=== PATIENT | female | born 1955 | race Two or more races ===

== ENCOUNTER 2020-06-16 19:40 | Emergency (ER) | payer MEDICARE, OTHER ==
[2020-06-16 19:51] VITALS: BMI 20.5
[2020-06-16] MEDS ORDERED: ACETAMINOPHEN 1000 MG/100 ML VIAL (NON FORMULARY) IVPB ONE (20:11)
[2020-06-16] MEDS ORDERED: ACETAMINOPHEN INJECTION 100 ML IVPB ONE (20:20)
[2020-06-16 20:27] LABS: BASO % 0.5 % (0-2.0); EOS % 0.5 % (0-4.5); HEMATOCRIT 42.2 % (32.4-45.2); HEMOGLOBIN 14.3 GM/dL (10.7-15.3); LYMPH % 25.2 % (8-40); MCH 30.1 pg (25.7-33.7); MCHC 33.8 g/dl (32.0-36.0); MEAN CELL VOLUME 89.1 fl (80-96); MEAN PLT VOLUME 9.1 fl (7.5-11.1); MONO % 8.7 % (3.8-10.2); NEUT % 65.1 % (42.8-82.8); PLATELET COUNT 171 K/MM3 (134-434); RBC 4.74 M/mm3 (3.60-5.2); WHITE BLOOD COUNT 4.1 K/mm3 (4.0-10.0)
[2020-06-16 20:47] LABS: CHLORIDE 105 mmol/L (98-107); POTASSIUM 3.5 mmol/L (3.5-5.1); SODIUM 139 mmol/L (136-145)
[2020-06-16 20:50] LABS: CALCIUM 8.5 mg/dL (8.5-10.1)
[2020-06-16 20:51] LABS: ALBUMIN 3.7 g/dl (3.4-5.0); ANION GAP 7 MMOL/L (8-16); CO2 28 mmol/L (21-32); GLUCOSE,RANDOM 107 mg/dL (74-106); LIPASE 224 U/L (73-393)
[2020-06-16 20:53] LABS: SGPT/ALT 17 U/L (13-61)
[2020-06-16 20:54] LABS: CREATININE 0.7 mg/dL (0.55-1.3); SGOT/AST 12 U/L (15-37)
[2020-06-16 20:55] LABS: TOT PROT 6.7 g/dl (6.4-8.2)
[2020-06-16 20:56] LABS: ALK PHOS 118 U/L (45-117)
[2020-06-16] MEDS ORDERED: MAG HYDROX/AL HYDROX/SIMETH 30 ML UNIT-DOSE CUP PO ONE (21:01)
[2020-06-16] MEDS ORDERED: FAMOTIDINE 20 MG/50 ML IVPB 20 MG/50 ML MG IVPB ONE ×2 (21:01→21:32)
[2020-06-16] MEDS ORDERED: HYDROmorphone HCL CARPU-JECT 2 MG/1 ML DISP.SYRIN IVPUSH ONE ×2 (21:01→21:05)
[2020-06-16] MEDS ORDERED: MAG HYDROX/AL HYDROX/SIMETH 30 ML UNIT-DOSE CUP ONE (21:32)
[2020-06-16] MEDS ORDERED: HYDROmorphone HCl 2 MG/ML VIAL ONE (21:32)
[2020-06-16] MEDS ORDERED: BAMLANIVIMAB 700 MG in SODIUM CHLORIDE 250 ML IVPB ONE (22:51)
[2020-06-17 00:41] VITALS: TEMP 98.2
[2020-06-17] MEDS ORDERED: METOCLOPRAMIDE HCL 10 MG TABLET (FP) PO ONE ×2 (00:58)
[2020-06-17 02:51] VITALS: BP 158/84; PULSE 78
[2020-06-17] MEDS ORDERED: ACETAMINOPHEN 325 MG TABLET (FP) ONE (03:02)
[2020-06-17] MEDS ORDERED: ACETAMINOPHEN 325 MG TABLET (FP) PO ONE (03:06)
== END 2020-06-17 03:13 | disposition home or self-care (01) ==
LOC: JER 19:40
PROC: 3E0333Z Introduction of Anti-inflammatory into Peripheral Vein, Percutaneous Approach (ICD-10-PCS; principal; 2020-06-16)
PROC: 3E03329 Introduction of Other Anti-infective into Peripheral Vein, Percutaneous Approach (ICD-10-PCS; 2020-06-16)
PROC: 3E033GC Introduction of Other Therapeutic Substance into Peripheral Vein, Percutaneous Approach (ICD-10-PCS; 2020-06-16)
PROC: 3E033GC Introduction of Other Therapeutic Substance into Peripheral Vein, Percutaneous Approach (ICD-10-PCS; 2020-06-16)
DX: U07.1 COVID-19 (principal)
CPT/HCPCS: 36415; 71045-TC-FY; 80053; 83690; 84484; 85025; 93005; 93010; 99285-25; C9803; J0131; M0239; Q0239; U0003

== ENCOUNTER 2020-09-12 12:25 | Day surgery (SDC) | payer MEDICARE, OTHER ==
[2020-09-12] MEDS ORDERED: ACETAMINOPHEN 325 MG TABLET (FP) PO ONE (13:00)
[2020-09-12] MEDS ORDERED: ZOLEDRONIC ACID/MAN/WATER 5 MG/100 ML INFUS..BTL IVPB ONE (13:00)
[2020-09-12 13:24] VITALS: TEMP 99
[2020-09-12 15:42] VITALS: BP 150/64; PULSE 87
== END 2020-09-12 15:15 | disposition home or self-care (01) ==
LOC: FINFUSION 12:25 → FM/S 12:30 → FINFUSION 15:15
PROVIDERS: ATTEND Internal Medicine Endocrinology, Diabetes & Metabolism
PROC: 3E033GC Introduction of Other Therapeutic Substance into Peripheral Vein, Percutaneous Approach (ICD-10-PCS; principal; 2020-09-12)
DX: M81.0 Age-related osteoporosis without current pathological fracture (principal)
CPT/HCPCS: 96365; J3489

== ENCOUNTER 2021-11-26 14:02 | Observation (INO) | payer MEDICARE, OTHER ==
[2021-11-26] MEDS ORDERED: ACETAMINOPHEN 325 MG TABLET (FP) PO ONE (15:48)
[2021-11-26] MEDS ORDERED: ACETAMINOPHEN 325 MG TABLET (FP) ONE (15:58)
[2021-11-26 18:48] LABS: BASO % 0.7 % (0-2.0); HEMATOCRIT 43.2 % (32.4-45.2); HEMOGLOBIN 14.4 GM/dL (10.7-15.3); LYMPH % 21.1 % (8-40); MCH 29.9 pg (25.7-33.7); MCHC 33.4 g/dl (32.0-36.0); MEAN CELL VOLUME 89.6 fl (80-96); MEAN PLT VOLUME 9.5 fl (7.5-11.1); MONO % 6.8 % (3.8-10.2); NEUT % 68.4 % (42.8-82.8); PLATELET COUNT 269 10^3/uL (134-434); RBC 4.82 M/mm3 (3.60-5.2); RDW 13.8 % (11.6-15.6); WHITE BLOOD COUNT 6.6 K/mm3 (4.0-10.0)
[2021-11-26 19:17] LABS: CALCIUM 8.9 mg/dL (8.5-10.1)
[2021-11-26 19:18] LABS: ALBUMIN 3.7 g/dl (3.4-5.0); BLOOD UREA NITROGEN 11.2 mg/dL (7-18)
[2021-11-26 19:20] LABS: CREATININE 0.7 mg/dL (0.55-1.3)
[2021-11-26 19:22] LABS: TOT PROT 6.8 g/dl (6.4-8.2)
[2021-11-26 19:27] LABS: BILIRUBIN,TOTAL 0.6 mg/dL (0.2-1)
[2021-11-26 21:06] LABS: ERYTHROCYTE SEDIMENTATION RATE 11 mm/hr (0-30)
[2021-11-26] MEDS ORDERED: ONDANSETRON 4 MG/2 ML VIAL IVPUSH PRN (23:19)
[2021-11-26] MEDS ORDERED: ACETAMINOPHEN 1000 MG/100 ML BAG IVPB PRN (23:20)
[2021-11-27] MEDS ORDERED: ATORVASTATIN CA 80 MG TABLET (FP) ONE (00:24)
[2021-11-27] MEDS: ATORVASTATIN CA 80 MG TABLET (FP) PO SCH ×2 (00:27→21:41)
[2021-11-27 01:12] LABS: INR 1.03 (0.83-1.09); PROTHROMBIN TIME (PATIENT) 11.9 SEC (9.7-13.0)
[2021-11-27 01:15] LABS: ACTIVATED PTT 25.2 SECONDS (25.2-36.5)
[2021-11-27 01:23] LABS: BLOOD UREA NITROGEN 11.7 mg/dL (7-18); CALCIUM 8.5 mg/dL (8.5-10.1)
[2021-11-27 01:27] LABS: CREATININE 0.7 mg/dL (0.55-1.3)
[2021-11-27] MEDS ORDERED: PATIENT'S OWN MEDICATION (NON-FORMULARY) (Lipase/Protease/Amylase [Zenpep Dr 40,000 Unit C PO SCH (06:00)
[2021-11-27] MEDS: GABAPENTIN 300 MG CAPSULE PO SCH ×3 (06:25→21:41)
[2021-11-27] MEDS: FAMOTIDINE 40 MG TABLET PO SCH ×2 (10:17→21:41)
[2021-11-27] MEDS: ENOXAPARIN NA (PORCINE) 40 MG/0.4 ML DISP.SYRIN SQ SCH (10:17)
[2021-11-27] MEDS: LORATADINE 10 MG TABLET PO SCH (10:17)
[2021-11-27] MEDS: PANTOPRAZOLE 40 MG TABLET PO SCH (10:17)
[2021-11-27 13:27] LABS: BASO % 0.9 % (0-2.0); EOS % 2.3 % (0-4.5); HEMATOCRIT 43.6 % (32.4-45.2); HEMOGLOBIN 14.6 GM/dL (10.7-15.3); LYMPH % 20.6 % (8-40); MCH 30.2 pg (25.7-33.7); MCHC 33.5 g/dl (32.0-36.0); MONO % 6.2 % (3.8-10.2); PLATELET COUNT 251 10^3/uL (134-434); RBC 4.84 M/mm3 (3.60-5.2); RDW 13.5 % (11.6-15.6); WHITE BLOOD COUNT 5.7 K/mm3 (4.0-10.0)
[2021-11-27 13:46] LABS: ALBUMIN 3.4 g/dl (3.4-5.0); CALCIUM 8.5 mg/dL (8.5-10.1)
[2021-11-27 13:47] LABS: BLOOD UREA NITROGEN 11.5 mg/dL (7-18)
[2021-11-27 13:49] LABS: CREATININE 0.6 mg/dL (0.55-1.3); PHOSPHOROUS 2.6 mg/dL (2.5-4.9)
[2021-11-27 13:51] LABS: BILIRUBIN,TOTAL 0.8 mg/dL (0.2-1); TOT PROT 6.3 g/dl (6.4-8.2)
[2021-11-27] MEDS: LIPASE/PROTEASE/AMYLASE 36,000 UNIT CAPSULE PO SCH (16:32)
[2021-11-28] MEDS: GABAPENTIN 300 MG CAPSULE PO SCH ×2 (06:27→14:27)
[2021-11-28] MEDS ORDERED: LOSARTAN POTASSIUM 25 MG TABLET PO SCH (10:00)
[2021-11-28] MEDS ORDERED: FUROSEMIDE 20 MG TABLET (FP) PO SCH (10:00)
[2021-11-28] MEDS ORDERED: metoPROLOL SUCCINATE 25 MG TAB.SR.24H (FP) PO SCH (10:00)
[2021-11-28] MEDS: PANTOPRAZOLE 40 MG TABLET PO SCH (10:12)
[2021-11-28] MEDS: ENOXAPARIN NA (PORCINE) 40 MG/0.4 ML DISP.SYRIN SQ SCH (10:12)
[2021-11-28] MEDS: LORATADINE 10 MG TABLET PO SCH (10:12)
[2021-11-28] MEDS: FAMOTIDINE 40 MG TABLET PO SCH (10:12)
[2021-11-28] MEDS: LIPASE/PROTEASE/AMYLASE 36,000 UNIT CAPSULE PO SCH ×3 (11:37→17:37)
[2021-11-28 13:56] LABS: BASO % 0.7 % (0-2.0); EOS % 2.1 % (0-4.5); HEMATOCRIT 41.8 % (32.4-45.2); HEMOGLOBIN 13.8 GM/dL (10.7-15.3); LYMPH % 22.3 % (8-40); MCH 30.1 pg (25.7-33.7); MCHC 33.1 g/dl (32.0-36.0); MEAN PLT VOLUME 9.6 fl (7.5-11.1); MONO % 6.6 % (3.8-10.2); NEUT % 68.3 % (42.8-82.8); PLATELET COUNT 251 10^3/uL (134-434); RDW 13.6 % (11.6-15.6); WHITE BLOOD COUNT 6.1 K/mm3 (4.0-10.0)
[2021-11-28 14:32] LABS: CALCIUM 8.2 mg/dL (8.5-10.1)
[2021-11-28 14:33] LABS: ALBUMIN 3.4 g/dl (3.4-5.0); MAGNESIUM 2.1 mg/dL (1.8-2.4)
[2021-11-28 14:34] LABS: BLOOD UREA NITROGEN 14.5 mg/dL (7-18)
[2021-11-28 14:36] LABS: CREATININE 0.9 mg/dL (0.55-1.3); PHOSPHOROUS 3.1 mg/dL (2.5-4.9)
[2021-11-28 14:37] LABS: BILIRUBIN,TOTAL 0.8 mg/dL (0.2-1)
[2021-11-28 14:38] LABS: TOT PROT 6.2 g/dl (6.4-8.2)
[2021-11-28 14:48] VITALS: BP 118/77; PULSE 83; TEMP 98.7
[2021-11-28] MEDS ORDERED: POTASSIUM CHLORIDE TABS 10 MEQ TABLET.ER (FP) PO ONE (15:01)
[2021-11-28 16:20] VITALS: BMI 24.8
== END 2021-11-28 19:26 | disposition home or self-care (01) ==
LOC: JER 14:02 → JERBED 21:26 → J4S 11-27 01:30
PROVIDERS: ADMIT Internal Medicine; ATTEND Internal Medicine
PROC: 3E033NZ Introduction of Analgesics, Hypnotics, Sedatives into Peripheral Vein, Percutaneous Approach (ICD-10-PCS; principal; 2021-11-26)
PROC: 3E033GC Introduction of Other Therapeutic Substance into Peripheral Vein, Percutaneous Approach (ICD-10-PCS; 2021-11-26)
DX: G45.9 Transient cerebral ischemic attack, unspecified (principal); K86.1 Other chronic pancreatitis; I10 Essential (primary) hypertension; G62.9 Polyneuropathy, unspecified; M79.7 Fibromyalgia; Z85.038 Personal history of other malignant neoplasm of large intestine; Z88.8 Allergy status to other drugs, medicaments and biological substances; Z88.0 Allergy status to penicillin; Z91.013 Allergy to seafood; Z91.040 Latex allergy status; M79.602 Pain in left arm
CPT/HCPCS: 36415; 70450-TC; 70551-TC; 80048; 80053; 80061; 82550; 83036; 83735; 84100; 84443; 84484; 85025; 85610; 85651; 85730; 86140; 93005; 93010; 93306-TC; 93880-TC; 96372; 96374; 96375; 97116-GP; 97161-GP; 99285-25; C9803-CS; G0378; U0003; U0005

== ENCOUNTER 2022-01-20 10:37 | Emergency (ER) | payer MEDICARE, OTHER ==
[2022-01-20 10:49] VITALS: TEMP 97.6; BMI 22.8
[2022-01-20] MEDS ORDERED: FAMOTIDINE 20 MG/50 ML IVPB 20 MG/50 ML MG IVPB ONE ×2 (10:54→11:25)
[2022-01-20] MEDS ORDERED: methylPREDNISolone NA SUCC 125 MG/2 ML VIAL IVPB ONE (10:54)
[2022-01-20] MEDS ORDERED: methylPREDNISolone NA SUCC 125 MG/2 ML VIAL ONE (11:25)
[2022-01-20 13:45] VITALS: BP 128/70; PULSE 71; RESP 20
== END 2022-01-20 13:45 | disposition home or self-care (01) ==
LOC: JER 10:37
PROC: 3E033NZ Introduction of Analgesics, Hypnotics, Sedatives into Peripheral Vein, Percutaneous Approach (ICD-10-PCS; principal; 2022-01-20)
PROC: 3E033NZ Introduction of Analgesics, Hypnotics, Sedatives into Peripheral Vein, Percutaneous Approach (ICD-10-PCS; 2022-01-20)
PROC: 3E033GC Introduction of Other Therapeutic Substance into Peripheral Vein, Percutaneous Approach (ICD-10-PCS; 2022-01-20)
DX: L50.0 Allergic urticaria (principal)
CPT/HCPCS: 96365; 96375; 99284-25

== ENCOUNTER 2022-04-02 12:08 | Emergency (ER) | payer MEDICARE, OTHER ==
[2022-04-02 12:14] VITALS: BMI 22.8
[2022-04-02] MEDS ORDERED: morphine CARPU-JECT 2 MG/1 ML DISP.SYRIN IVPUSH ONE (12:49)
[2022-04-02] MEDS ORDERED: SODIUM CHLORIDE 1,000 ML IV SCH (13:00)
[2022-04-02 13:45] LABS: BASO % 0.6 % (0-2.0); EOS % 1.4 % (0-4.5); HEMATOCRIT 43.2 % (32.4-45.2); HEMOGLOBIN 14.4 GM/dL (10.7-15.3); LYMPH % 16.6 % (8-40); MCH 30.1 pg (25.7-33.7); MCHC 33.4 g/dl (32.0-36.0); MEAN CELL VOLUME 90.1 fl (80-96); MEAN PLT VOLUME 8.8 fl (7.5-11.1); MONO % 7.1 % (3.8-10.2); NEUT % 74.3 % (42.8-82.8); PLATELET COUNT 272 10^3/uL (134-434); RDW 13.6 % (11.6-15.6); WHITE BLOOD COUNT 6.3 K/mm3 (4.0-10.0)
[2022-04-02 13:55] LABS: INR 1.06 (0.83-1.09); PROTHROMBIN TIME (PATIENT) 12.2 SEC (9.7-13.0)
[2022-04-02 13:58] LABS: ACTIVATED PTT 32.6 SECONDS (25.2-36.5)
[2022-04-02 14:04] LABS: ALBUMIN 3.8 g/dl (3.4-5.0); CALCIUM 8.8 mg/dL (8.5-10.1)
[2022-04-02 14:05] LABS: BLOOD UREA NITROGEN 14.5 mg/dL (7-18)
[2022-04-02 14:08] LABS: CREATININE 0.7 mg/dL (0.55-1.3)
[2022-04-02 14:09] LABS: BILIRUBIN,TOTAL 0.6 mg/dL (0.2-1); TOT PROT 6.9 g/dl (6.4-8.2)
[2022-04-02 16:57] VITALS: BP 155/83; PULSE 80; RESP 16; TEMP 98.4
== END 2022-04-02 17:50 | disposition home or self-care (01) ==
LOC: JER 12:08 → JERFT 12:08 → JER 17:50
PROC: 3E033GC Introduction of Other Therapeutic Substance into Peripheral Vein, Percutaneous Approach (ICD-10-PCS; principal; 2022-04-02)
PROC: 3E033GC Introduction of Other Therapeutic Substance into Peripheral Vein, Percutaneous Approach (ICD-10-PCS; 2022-04-02)
DX: R51.9 Headache, unspecified (principal); R21 Rash and other nonspecific skin eruption
CPT/HCPCS: 36415; 70450-TC; 80053; 84484; 85025; 85610; 85730; 93005; 93010; 96374; 96375; 99285-25

== ENCOUNTER 2024-08-25 11:32 | Emergency (ER) | payer MEDICARE, OTHER ==
[2024-08-25 12:50] VITALS: BMI 22.8
[2024-08-25] MEDS ORDERED: ACETAMINOPHEN INJECTION 100 ML ONE (13:12)
[2024-08-25] MEDS ORDERED: MAG HYDROX/AL HYDROX/SIMETH 30 ML UNIT-DOSE CUP ONE (13:12)
[2024-08-25] MEDS ORDERED: FAMOTIDINE 20 MG/50 ML IVPB 20 MG/50 ML MG IVPB ONE (13:12)
[2024-08-25] MEDS: MAG HYDROX/AL HYDROX/SIMETH 30 ML UNIT-DOSE CUP PO ONE (13:42)
[2024-08-25 14:00] LABS: ABSOLUTE IMMATURE GRANULOCYTES 0.03 x10^3/uL (0.0-0.031); BASOPHILS # 0.06 x10^3/uL (0.01-0.08); EOSINOPHILS # 0.09 x10^3/uL (0.04-0.36); HEMATOCRIT 41.9 % (34.1-44.9); HEMOGLOBIN 13.6 g/dL (11.2-15.7); MCHC 32.5 g/dl (32.2-35.5); MEAN CELL VOLUME 93.1 fl (79.4-94.8); MEAN PLT VOLUME 10.2 fl (9.4-12.3); MONOCYTE # 0.59 x10^3/uL (0.24-0.86); MONOCYTE % 6.3 % (4.7-12.5); PLATELET COUNT 345 x10^3/uL (182-369)
[2024-08-25] MEDS: FAMOTIDINE 20 MG/50 ML IVPB 20 MG/50 ML MG IVPB ONE (14:14)
[2024-08-25] MEDS: ACETAMINOPHEN 1000 MG/100 ML BAG IVPB ONE (14:20)
[2024-08-25] MEDS ORDERED: HYDROmorphone HCL 2 MG TABLET ONE (14:21)
[2024-08-25] MEDS ORDERED: GABAPENTIN 300 MG CAPSULE ONE (14:21)
[2024-08-25] MEDS: HYDROmorphone HCL 2 MG TABLET PO ONE (14:24)
[2024-08-25] MEDS: GABAPENTIN 300 MG CAPSULE PO ONE (14:25)
[2024-08-25 14:33] LABS: POTASSIUM 3.6 mmol/L (3.5-5.1)
[2024-08-25 14:36] LABS: ALBUMIN 3.3 g/dl (3.4-5.0); BLOOD UREA NITROGEN 14.7 mg/dL (7-18); CALCIUM 9.1 mg/dL (8.5-10.1); MAGNESIUM 2.1 mg/dL (1.8-2.4)
[2024-08-25 14:38] LABS: CREATININE 0.7 mg/dL (0.55-1.3); PHOSPHOROUS 3.4 mg/dL (2.5-4.9)
[2024-08-25 14:40] LABS: BILIRUBIN,TOTAL 0.5 mg/dL (0.2-1); TOT PROT 6.2 g/dl (6.4-8.2)
[2024-08-25 14:40] LABS: URINE APPEARANCE CLEAR; URINE BILIRUBIN NEGATIVE (NEGATIVE); URINE COLOR YELLOW; URINE GLUCOSE (UA) NEGATIVE (NEGATIVE); URINE KETONE NEGATIVE (NEGATIVE); URINE LEUK ESTERASE NEGATIVE (NEGATIVE); URINE NITRITE NEGATIVE (NEGATIVE); URINE PROTEIN NEGATIVE (NEGATIVE); URINE UROBILINOGEN 0.2 mg/dL (0.2-1.0)
[2024-08-25 15:12] VITALS: TEMP 98.1
[2024-08-25 16:49] VITALS: BP 148/93; PULSE 63; RESP 20
== END 2024-08-25 17:14 | disposition home or self-care (01) ==
LOC: JER 11:32
PROC: 3E033GC Introduction of Other Therapeutic Substance into Peripheral Vein, Percutaneous Approach (ICD-10-PCS; principal; 2024-08-25)
PROC: 3E033NZ Introduction of Analgesics, Hypnotics, Sedatives into Peripheral Vein, Percutaneous Approach (ICD-10-PCS; 2024-08-25)
DX: M54.50 Low back pain, unspecified (principal); R30.0 Dysuria; R14.0 Abdominal distension (gaseous); R10.32 Left lower quadrant pain; R10.11 Right upper quadrant pain; R10.13 Epigastric pain
CPT/HCPCS: 36415; 74176-TC; 80053; 81003; 83690; 83735; 84100; 85025; 87086; 93005; 93010; 96365; 96375; 99285-25

== ENCOUNTER 2024-09-04 14:51 | Observation (INO) | payer MEDICARE, OTHER ==
[2024-09-04 15:27] VITALS: BMI 23.8
[2024-09-04] MEDS ORDERED: ACETAMINOPHEN INJECTION 100 ML ONE (16:02)
[2024-09-04] MEDS ORDERED: HYDROmorphone HCL CARPU-JECT 2 MG/1 ML DISP.SYRIN ONE (16:02)
[2024-09-04] MEDS ORDERED: GABAPENTIN 300 MG CAPSULE ONE ×2 (16:09→23:44)
[2024-09-04] MEDS ORDERED: HYDROmorphone HCL 2 MG TABLET ONE ×2 (16:26→22:09)
[2024-09-04] MEDS: GABAPENTIN 300 MG CAPSULE PO ONE (16:32)
[2024-09-04] MEDS: SODIUM CHLORIDE 1,000 ML IV STA (16:32)
[2024-09-04] MEDS: HYDROmorphone HCL 2 MG TABLET PO ONE (16:32)
[2024-09-04 16:56] LABS: ABSOLUTE IMMATURE GRANULOCYTES 0.02 x10^3/uL (0.0-0.031); BASOPHILS # 0.04 x10^3/uL (0.01-0.08); EOSINOPHILS # 0.06 x10^3/uL (0.04-0.36); HEMATOCRIT 42.9 % (34.1-44.9); HEMOGLOBIN 13.7 g/dL (11.2-15.7); MCHC 31.9 g/dl (32.2-35.5); MEAN CELL VOLUME 93.5 fl (79.4-94.8); MEAN PLT VOLUME 10.5 fl (9.4-12.3); MONOCYTE # 0.38 x10^3/uL (0.24-0.86); MONOCYTE % 6.3 % (4.7-12.5); PLATELET COUNT 300 x10^3/uL (182-369); RDW 13.2 % (12.4-16.4)
[2024-09-04 17:15] LABS: POTASSIUM 3.6 mmol/L (3.5-5.1)
[2024-09-04 17:19] LABS: CALCIUM 9.3 mg/dL (8.5-10.1)
[2024-09-04 17:20] LABS: ALBUMIN 3.7 g/dl (3.4-5.0); BLOOD UREA NITROGEN 10.2 mg/dL (7-18)
[2024-09-04 17:22] LABS: CREATININE 0.7 mg/dL (0.55-1.3); PHOSPHOROUS 2.8 mg/dL (2.5-4.9)
[2024-09-04 17:24] LABS: BILIRUBIN,TOTAL 0.4 mg/dL (0.2-1); TOT PROT 6.5 g/dl (6.4-8.2)
[2024-09-04] MEDS ORDERED: DOCUSATE SODIUM 100 MG CAPSULE (FP) PO PRN (21:18)
[2024-09-04] MEDS ORDERED: ACETAMINOPHEN 1000 MG/100 ML BAG IVPB PRN (21:21)
[2024-09-04] MEDS: HYDROmorphone HCL 2 MG TABLET PO PRN (22:18)
[2024-09-04] MEDS ORDERED: ATORVASTATIN CA 40 MG TABLET (FP) ONE (22:20)
[2024-09-04] MEDS ORDERED: metoPROLOL SUCCINATE 25 MG TAB.SR.24H (FP) PO ONE (22:20)
[2024-09-04] MEDS: ATORVASTATIN CA 40 MG TABLET (FP) PO SCH (22:24)
[2024-09-04] MEDS: metoPROLOL SUCCINATE 25 MG TAB.SR.24H (FP) PO SCH (22:24)
[2024-09-04 22:30] VITALS: RESP 18
[2024-09-04] MEDS ORDERED: HYDROmorphone HCL 2 MG TABLET PO SCH (22:30)
[2024-09-04] MEDS: GABAPENTIN 300 MG CAPSULE PO SCH (23:54)
[2024-09-05] MEDS: ACETAMINOPHEN 1000 MG/100 ML BAG IVPB PRN (02:02)
[2024-09-05] MEDS: HYDROmorphone HCL 2 MG TABLET PO ONE (04:12)
[2024-09-05] MEDS ORDERED: ARTIFICIAL TEARS OPHTHALMIC DROPS OU PRN (06:06)
[2024-09-05 07:33] LABS: ABSOLUTE IMMATURE GRANULOCYTES 0.01 x10^3/uL (0.0-0.031); BASOPHILS # 0.04 x10^3/uL (0.01-0.08); EOSINOPHIL % 1.3 % (0.7-5.8); EOSINOPHILS # 0.08 x10^3/uL (0.04-0.36); HEMATOCRIT 40.5 % (34.1-44.9); HEMOGLOBIN 12.9 g/dL (11.2-15.7); MCHC 31.9 g/dl (32.2-35.5); MEAN CELL VOLUME 92.3 fl (79.4-94.8); MEAN PLT VOLUME 10.7 fl (9.4-12.3); MONOCYTE # 0.45 x10^3/uL (0.24-0.86); MONOCYTE % 7.3 % (4.7-12.5); PLATELET COUNT 284 x10^3/uL (182-369)
[2024-09-05 07:49] LABS: POTASSIUM 3.8 mmol/L (3.5-5.1)
[2024-09-05 07:53] LABS: BLOOD UREA NITROGEN 6.7 mg/dL (7-18)
[2024-09-05 07:54] LABS: CALCIUM 8.9 mg/dL (8.5-10.1)
[2024-09-05 07:57] LABS: CREATININE 0.5 mg/dL (0.55-1.3); PHOSPHOROUS 3.3 mg/dL (2.5-4.9)
[2024-09-05] MEDS ORDERED: POLYETHYLENE GLYCOL (HEALTHYLAX) 3350 17 GM PACKET PO PRN (08:23)
[2024-09-05] MEDS: LOSARTAN POTASSIUM 25 MG TABLET PO SCH (15:02)
[2024-09-05] MEDS: PANTOPRAZOLE 40 MG TABLET PO SCH (15:03)
[2024-09-05] MEDS: CLOPIDOGREL BISULFATE 75 MG TABLET (FP) PO SCH (15:03)
[2024-09-05] MEDS ORDERED: CycloBENZAprine HCL 10 MG TABLET (FP) PO PRN (18:46)
[2024-09-05] MEDS: DOCUSATE SODIUM 100 MG CAPSULE (FP) PO SCH (21:24)
[2024-09-05] MEDS: ACETAMINOPHEN 325 MG TABLET (FP) PO PRN (21:25)
[2024-09-05 21:52] LABS: URINE APPEARANCE CLEAR; URINE COLOR YELLOW
[2024-09-05 21:53] LABS: URINE BILIRUBIN NEGATIVE (NEGATIVE); URINE GLUCOSE (UA) NEGATIVE (NEGATIVE); URINE KETONE NEGATIVE (NEGATIVE); URINE LEUK ESTERASE TRACE (NEGATIVE); URINE NITRITE NEGATIVE (NEGATIVE); URINE PROTEIN NEGATIVE (NEGATIVE)
[2024-09-05 21:54] LABS: EPI CELLS 14.8 /uL (0-25.1); HYALINE CASTS 0.25 /uL (0-3.1); URINE BACTERIA 129.8 /uL (0-1359)
[2024-09-06 08:07] LABS: ABSOLUTE IMMATURE GRANULOCYTES 0.02 x10^3/uL (0.0-0.031); BASOPHILS # 0.05 x10^3/uL (0.01-0.08); EOSINOPHIL % 0.6 % (0.7-5.8); EOSINOPHILS # 0.04 x10^3/uL (0.04-0.36); HEMATOCRIT 41.3 % (34.1-44.9); HEMOGLOBIN 13.2 g/dL (11.2-15.7); MEAN CELL VOLUME 91.8 fl (79.4-94.8); MEAN PLT VOLUME 10.7 fl (9.4-12.3); MONOCYTE # 0.47 x10^3/uL (0.24-0.86); MONOCYTE % 7.2 % (4.7-12.5); PLATELET COUNT 303 x10^3/uL (182-369); RDW 13.1 % (12.4-16.4)
[2024-09-06 08:23] LABS: POTASSIUM 3.7 mmol/L (3.5-5.1)
[2024-09-06 08:34] LABS: ALBUMIN 3.4 g/dl (3.4-5.0); BLOOD UREA NITROGEN 9.3 mg/dL (7-18); CALCIUM 9.1 mg/dL (8.5-10.1)
[2024-09-06 08:37] LABS: CREATININE 0.5 mg/dL (0.55-1.3)
[2024-09-06 08:38] LABS: BILIRUBIN,TOTAL 0.9 mg/dL (0.2-1)
[2024-09-06] MEDS: LIDOCAINE 5% TOPICAL PATCH TP SCH (09:17)
[2024-09-06] MEDS: POLYETHYLENE GLYCOL (HEALTHYLAX) 3350 17 GM PACKET PO SCH (09:17)
[2024-09-06] MEDS: ACETAMINOPHEN 500 MG TABLET (FP) PO SCH (09:17)
[2024-09-06] MEDS: GABAPENTIN 300 MG CAPSULE PO SCH (13:06)
[2024-09-06] MEDS: HYDROmorphone HCL 2 MG TABLET PO PRN (13:07)
[2024-09-06] MEDS: LIDOCAINE PATCH REMOVAL MC SCH (21:32)
[2024-09-06] MEDS: MELATONIN 5 MG TABLETS PO PRN (22:03)
[2024-09-07 13:06] VITALS: BP 109/62; PULSE 86; TEMP 97.9
== END 2024-09-07 13:41 | disposition home or self-care (01) ==
LOC: JER 14:51 → JERBED 20:27 → J7W 09-05 00:29
PROVIDERS: ADMIT Internal Medicine; ATTEND Internal Medicine
PROC: 3E033NZ Introduction of Analgesics, Hypnotics, Sedatives into Peripheral Vein, Percutaneous Approach (ICD-10-PCS; principal; 2024-09-04)
PROC: 3E033NZ Introduction of Analgesics, Hypnotics, Sedatives into Peripheral Vein, Percutaneous Approach (ICD-10-PCS; 2024-09-04)
PROC: 3E0337Z Introduction of Electrolytic and Water Balance Substance into Peripheral Vein, Percutaneous Approach (ICD-10-PCS; 2024-09-04)
DX: R10.9 Unspecified abdominal pain (principal); G62.9 Polyneuropathy, unspecified; E78.5 Hyperlipidemia, unspecified; I10 Essential (primary) hypertension; G89.29 Other chronic pain; Z90.49 Acquired absence of other specified parts of digestive tract; M79.7 Fibromyalgia; N20.0 Calculus of kidney; Z85.038 Personal history of other malignant neoplasm of large intestine; Z88.0 Allergy status to penicillin; Z87.891 Personal history of nicotine dependence; Z86.73 Personal history of transient ischemic attack (TIA), and cerebral infarction without residual deficits; Z90.79 Acquired absence of other genital organ(s)
CPT/HCPCS: 36415; 72131-TC; 72148-TC; 73502-TC-LT-FY; 73552-TC-LT-FY; 74176-TC; 80048; 80053; 81003; 83690; 83735; 84100; 85025; 85651; 85730; 86140; 93005; 93010; 96361; 96374; 96375; 97116-GP; 97161-GP; 99285-25; G0378; J0131